=== PATIENT | male | born 1945 | race Caucasian/White ===

== ENCOUNTER 2023-08-11 10:53 | Emergency (ER) | payer MEDICARE, BC ==
[2023-08-11] MEDS ORDERED: Sodium Chloride 0.9% 10 ML Syringe FLUSH PRN (12:00)
[2023-08-11] MEDS ORDERED: Sodium Chloride 0.9% 1,000 ML IV STA (12:02)
[2023-08-11 12:59] LABS: HEMATOCRIT 44.8 % (42.0-52.0); HEMOGLOBIN 15.5 gm/dl (14.0-18.0); MEAN CORPUSCULAR HGB CONC 34.6 g/dl (32.0-36.0); MEAN CORPUSCULAR VOLUME 92.4 fl (83.0-99.0); MEAN PLATELET VOLUME 9.7 fl (9.4-12.4); PLATELET COUNT,PLT 169 K/mm3 (150-400); RED BLOOD CELL COUNT 4.85 M/mm3 (4.52-5.90); WHITE BLOOD CELL COUNT,WBC 9.33 K/mm3 (3.9-11.3)
[2023-08-11 13:26] LABS: A/G RATIO 0.7 (1-2); ALANINE AMINOTRANSFERASE,ALT 80 U/L (16-63); ALBUMIN 3.5 g/dl (3.4-5.0); ALKALINE PHOSPHATASE 73 U/L (46-116); ANION GAP 12.2 (5-15); ASPARTATE AMNIOTRANSFERASE,AST 38 U/L (15-37); BILIRUBIN TOTAL 1.3 mg/dL (0.2-1.0); BLOOD UREA NITROGEN,BUN 24 mg/dL (7-18); CALCIUM 8.7 mg/dL (8.5-10.1); CARBON DIOXIDE,CO2 29 mEq/L (21-32); CHLORIDE,CL 92 mEq/L (98-107); CREATININE 1.2 mg/dL (0.7-1.3); EST CRCL DRUG DOSING (CG) 54.07 mL/min; ESTIMATED GFR 63 mL/min (>60); GLUCOSE RANDOM 128 mg/dL (70-99); POTASSIUM,K 3.2 mEq/L (3.5-5.1); PROTEIN TOTAL,TP 8.3 g/dl (6.4-8.2); SODIUM,NA 130 mEq/L (136-145)
[2023-08-11 13:36] LABS: C-REACTIVE PROTEIN < 0.2 mg/dL (<1.0)
[2023-08-11] MEDS ORDERED: Potassium Chloride 20 MEQ Tab.ER PO ONE (13:40)
[2023-08-11 14:13] LABS: APPEARANCE,URINE CLEAR (Clear); BILIRUBIN,URINE NEGATIVE (Negative); COLOR,URINE YELLOW (Yellow); GLUCOSE,URINE NEGATIVE (Negative); KETONES,URINE NEGATIVE (Negative); LEUKOCYTE ESTERASE,URINE NEGATIVE (Negative); NITRITE,URINE NEGATIVE (Negative); OCCULT BLOOD,URINE NEGATIVE (Negative); PROTEIN,URINE 1+ (Negative)
[2023-08-11 14:18] LABS: BAND PERCENT MAN 0 % (0-10); BASOPHILS PERCENT MAN 0 (0.2-1.2); EOSINOPHILS PERCENT MAN 1 % (0.8-7.0); LYMPHOCYTES % ATYPICAL MANUAL 0 %; LYMPHOCYTES PERCENT MAN 13 % (20-40); MONOCYTES PERCENT MAN 8 % (2-10); PLATELET COUNT ESTIMATE ADEQUATE
[2023-08-11 14:22] LABS: BACTERIA,URINE FEW /hpf (FEW); EPITHELIAL CELLS,URINE NOT SEEN /hpf (0-5); MUCUS,URINE NOT SEEN /hpf (FEW); RBC,URINE NOT SEEN /hpf (0-5); WBC,URINE NOT SEEN /hpf (0-5)
== END 2023-08-11 15:00 | disposition home or self-care (01) ==
LOC: JD.ED 10:53
DX: K52.9 Noninfective gastroenteritis and colitis, unspecified (principal)
CPT/HCPCS: 36415; 71046; 80053; 81001; 85007; 85027; 86140; 93005; 96360; 99285; A9270; J3490; J7030; 93010; 99283